=== PATIENT | female | born 2000 | race Caucasian/White ===

== ENCOUNTER 2018-11-27 12:03 | Inpatient (IN) ==
[2018-11-27] MEDS: LACTATED RINGERS 1,000 ML IV SCH (14:54)
[2018-11-27] MEDS ORDERED: KETOROLAC 30 MG/1 ML VIAL IV PRN (15:00)
[2018-11-27] MEDS ORDERED: KETOROLAC 30 MG/1 ML VIAL IV SCH (15:00)
[2018-11-27] MEDS: KETOROLAC 30 MG/1 ML VIAL IV SCH ×2 (17:25→22:10)
[2018-11-27] MEDS: cefOXitin 2,000 MG in SYRINGE 1 EACH IV SCH ×2 (17:26→22:13)
[2018-11-27] MEDS: DOXYCYCLINE HYCLATE INJ 100 MG in SODIUM CHLORIDE 0.9% 100 ML IV SCH (17:26)
[2018-11-27 20:31] LABS: Apearance,Urine CLEAR (Clear); Bilirubin,Urine Negative (Negative); Blood, Urine Small mg/dL (Negative); Glucose,Urine (UA) Negative (Negative); Ketones,Urine 5 mg/dL (Negative); Mucus,Urine Occasional /LPF (Occasional); Nitrite,Urine Negative (Negative); Protein,Urine Negative; RBC,Urine <1 /HPF (0-4); Squamous Epithelial Cell,Urine Occasional /HPF (0-10); Urine Color Yellow (Yellow); Urine Specific Gravity 1.013 (1.001-1.035); Urine Urobilinogen < 2.0 EU/DL (0.2-1.0); WBC,Urine 1 /HPF (0-6)
[2018-11-28] MEDS ORDERED: ONDANSETRON 4 MG/2 ML VIAL IV PRN (00:04)
[2018-11-28] MEDS: LACTATED RINGERS 1,000 ML IV SCH (03:19)
[2018-11-28] MEDS: cefOXitin 2,000 MG in SYRINGE 1 EACH IV SCH ×4 (03:25→21:41)
[2018-11-28] MEDS: KETOROLAC 30 MG/1 ML VIAL IV SCH ×4 (03:32→21:32)
[2018-11-28] MEDS: DOXYCYCLINE HYCLATE INJ 100 MG in SODIUM CHLORIDE 0.9% 100 ML IV SCH ×2 (06:03→18:16)
[2018-11-28 08:34] LABS: Basophils % 0.2 % (0.0-0.8); Eosinophils % 0.2 % (0.00-10.9); Hematocrit 32.7 VOL% (35.7-47.0); Hemoglobin 10.5 GM/DL (12.0-16.0); Immature Granulocytes % 0.5 %; Immature Granulocytes Absolute 0.07 #; Lymphocytes # 1.3 10*3/uL (1.4-4.0); Lymphocytes % 9.8 % (21.3-54.2); Mean Corpuscular HGB Conc 32.1 GM/DL (32-36); Mean Corpuscular Volume 92.4 FL (87-102); Mean Platelet Volume 10.9 FL (9.6-12.0); Monocytes % 7.2 % (1.7-12.7); Neutrophils % 82.1 % (38.7-73.9); Platelet Count 163 T/CUMM (130-400); Red Blood Count 3.54 MC/CUMM (3.8-5.5); Red Cell Distribution Width 12.7 % (9.3-17.3); White Blood Count 12.8 T/CUMM (4-12)
[2018-11-28 09:02] LABS: Albumin 2.8 G/DL (3.4-5.0); Bilirubin,Total 0.7 MG/DL (0.2-1.0); Calcium 8.7 MG/DL (8.5-10.1); Osmolality,Calculated 272.7 MOS/KG (273-304); Total Protein 6.6 G/DL (6.4-8.3)
[2018-11-28] MEDS: DOCUSATE SODIUM 100 MG CAPSULE PO SCH ×2 (09:02→21:26)
[2018-11-28] MEDS: POLYETHYLENE GLYCOL POWDER 17 GM PACK PO SCH (09:02)
[2018-11-29] MEDS: LACTATED RINGERS 1,000 ML IV SCH (04:47)
[2018-11-29] MEDS: KETOROLAC 30 MG/1 ML VIAL IV SCH ×3 (04:48→15:30)
[2018-11-29 04:51] LABS: Basophils % 0.3 % (0.0-0.8); Eosinophils # 0.2 10*3/uL (0.0-0.87); Eosinophils % 2.3 % (0.00-10.9); Hematocrit 31.8 VOL% (35.7-47.0); Immature Granulocytes % 0.6 %; Immature Granulocytes Absolute 0.06 #; Lymphocytes # 2.1 10*3/uL (1.4-4.0); Mean Corpuscular HGB Conc 31.4 GM/DL (32-36); Mean Corpuscular Volume 94.1 FL (87-102); Mean Platelet Volume 10.7 FL (9.6-12.0); Monocytes % 5.7 % (1.7-12.7); Neutrophils % 69.1 % (38.7-73.9); Platelet Count 184 T/CUMM (130-400); Red Blood Count 3.38 MC/CUMM (3.8-5.5); Red Cell Distribution Width 12.9 % (9.3-17.3); White Blood Count 9.7 T/CUMM (4-12)
[2018-11-29] MEDS: cefOXitin 2,000 MG in SYRINGE 1 EACH IV SCH ×3 (04:52→15:03)
[2018-11-29] MEDS: DOXYCYCLINE HYCLATE INJ 100 MG in SODIUM CHLORIDE 0.9% 100 ML IV SCH (06:05)
[2018-11-29] MEDS: DOCUSATE SODIUM 100 MG CAPSULE PO SCH (09:21)
[2018-11-29] MEDS: POLYETHYLENE GLYCOL POWDER 17 GM PACK PO SCH (09:22)
[2018-11-29 12:43] VITALS: BP 99/50
[2018-11-29 13:54] LABS: Source URINE
== END 2018-11-29 15:47 | disposition home or self-care (01) | DRG 759 ==
LOC: N.4E 13:19
PROVIDERS: ADMIT Obstetrics & Gynecology; ATTEND Obstetrics & Gynecology